=== PATIENT | male | born 1940 | race Hispanic/Latino ===

== ENCOUNTER → 2018-10-01 | Outpatient (CLI) | payer OTHER ==
[~2018-10-01] MED LIST: CELE-84 PO; FINA5TAB41 PO; GLIP5TAB11 PO; LEVO125 PO; LISI-613 PO; METF-444 PO; METF-446 PO; SIMV40TA59 PO
== END | disposition home or self-care (01) ==
LOC: SHCH 08:29
PROVIDERS: ATTEND Internal Medicine Cardiovascular Disease
DX: R00.0 Tachycardia, unspecified (principal)
CPT/HCPCS: 93306